=== PATIENT | male | born 1970 | race Hispanic/Latino ===

== ENCOUNTER 2025-05-31 08:09 | Day surgery (SDC) | payer BC ==
[2025-05-30 15:31] VITALS: BMI 33.6
[~2025-05-31 08:09] MED LIST: EPINEPHrine 0.3 MG in Ophthalmic Irrigation Solution 500 ML IRR SCH
[2025-05-31] MEDS ORDERED: Cyclopentolate 1% Opth Drop 2 ML BOT ONE (08:39)
[2025-05-31] MEDS ORDERED: Lidocaine 1% PF 5 ML VIAL ONE (08:56)
[2025-05-31] MEDS ORDERED: PROPOFOL 20 ML ONE (08:56)
[2025-05-31 09:21] LABS: Anion Gap 16 mmol/L (10-20); BUN (Urea Nitrogen) 22 mg/dL (8.4-25.7); Calc. Creatinine Clearance 182 mL/min (70-130); Calcium 9.8 mg/dL (7.8-10.44); Carbon Dioxide 22 mmol/L (22-29); Chloride 107 mmol/L (98-107); Glucose 136 mg/dL (70-105); Potassium 3.8 mmol/L (3.5-5.1); Sodium 141 mmol/L (136-145)
[2025-05-31] MEDS ORDERED: CEFAZOLIN 1 GM VIAL ONE (09:38)
[2025-05-31] MEDS ORDERED: Maxitrol 0.1% Opth Oint 3.5 GM TUBE ONE (09:38)
[2025-05-31] MEDS ORDERED: Lidocaine 4% PF 5 ML AMP ONE (09:38)
== END 2025-05-31 10:58 | disposition home or self-care (01) ==
LOC: SDC 08:09
PROVIDERS: ATTEND Ophthalmology Retina Specialist
PROC: 08T43ZZ Resection of Right Vitreous, Percutaneous Approach (ICD-10-PCS; principal; 2025-05-31)
DX: H33.021 Retinal detachment with multiple breaks, right eye (principal); I10 Essential (primary) hypertension; E11.9 Type 2 diabetes mellitus without complications
CPT/HCPCS: 67025; 80048; 93005; 93010; J0166; J0690; J2250; J2704; J3010; J3301; J3490

== ENCOUNTER 2025-08-09 07:01 | Day surgery (SDC) | payer BC ==
[2025-08-08 16:14] VITALS: BMI 35.6
[2025-08-09] MEDS ORDERED: EPINEPHrine 0.3 MG in Ophthalmic Irrigation Solution 500 ML IRR SCH (07:15)
[2025-08-09] MEDS ORDERED: Cyclopentolate 1% Opth Drop 2 ML BOT ONE (07:44)
[2025-08-09] MEDS ORDERED: Maxitrol 0.1% Opth Oint 3.5 GM TUBE ONE (09:37)
[2025-08-09] MEDS ORDERED: Lidocaine 4% PF 5 ML AMP ONE (09:37)
[2025-08-09] MEDS ORDERED: Lidocaine 1% PF 5 ML VIAL ONE (09:37)
[2025-08-09] MEDS ORDERED: CEFAZOLIN 1 GM VIAL ONE (09:37)
[2025-08-09] MEDS ORDERED: PROPOFOL 200 MG/20 ML VIAL ONE (09:37)
== END 2025-08-09 11:35 | disposition home or self-care (01) ==
LOC: SDC 07:01
PROVIDERS: ATTEND Ophthalmology Retina Specialist
PROC: 08NE3ZZ Release Right Retina, Percutaneous Approach (ICD-10-PCS; principal; 2025-08-09)
PROC: 08T43ZZ Resection of Right Vitreous, Percutaneous Approach (ICD-10-PCS; principal; 2025-08-09)
DX: H33.41 Traction detachment of retina, right eye (principal)
CPT/HCPCS: 36416; C1814; J0166; J0690; J2003; J2250; J2704; J3010; J3301; J3490; J7050